=== PATIENT | female | born 1950 | race African-American/Black ===

== ENCOUNTER 2022-11-11 14:13 | Emergency (ER) | payer OTHER ==
--- OUTSIDE RECORDS SUMMARY | 2022-11-11 14:18 | XMS REPORT | Continuity of Care Document ---
:1950 Author Organization [facility] t Address [address] [place] [address] Care Team Providers Name Role Phone Anselmo ESTRADA, Dony Rankin Primary Care Physician [phone] Margarita Harvey LVN Attending Clinician Unavailable Anselmo ESTRADA, Dony Rankin Attending Clinician [phone] Casper Cash MD Attending Clinician [phone] Marline Andrade MD Attending Clinician Darinel ESTRADA, Tera Silverio Attending Clinician Carmine ESTRADA, Torin Alves Attending Clinician [phone] Yomaira Kilgore MD Attending Clinician KAMINI SAWANT Attending Clinician Unavailable YOMAIRA PEMBERTON Attending Clinician Unavailable ANDREW KEYES Attending Clinician Unavailable LILLIAN CASAS Attending Clinician Unavailable LILLIAN CASAS Admitting Clinician Unavailable Payers Payer Name Policy Type Policy Number Effective Date Expiration Date S ource Problems Condition Condition Condition Status Onset Resolution Last Treating Co mments Source Name Details Category Date Date Treatment Clinician Date Elevated Elevated Disease Active 2021-03 Metho di lipoprotei lipoprotei 2-15 st n(a) n(a) 00:00: Hospita 00 l Chest pain Chest pain Disease Active 2020-0 M ethodi with with 5-28 st moderate moderate 00:00: Hospit a risk for risk for 00 l cardiac cardiac etiology etiology Complicati Complicati Disease Active M ethodi on of on of 12 st internal internal 00:00: Hospit a right knee right knee 00 l prosthesis prosthesis Atopic Atopic Disease Active Methodi rhinitis rhinitis 06-09 st 00:00: Hospita 00 l Asthma Asthma Disease Active Methodi 06-09 st 00:00: Hospita 00 l Cervical Cervical Disease Active Metho di radiculiti radiculiti 410 st s s 00:00: Hospita 00 l Chronic Chronic Disease Active Methodi pain pain 06-09 st syndrome syndrome 00:00: Hospit a 00 l Depression Depression Disease Active M ethodi 06-09 st 00:00: Hospita 00 l Edema Edema Disease Active Methodi 06-09 st 00:00: Hospita 00 l Fibromyalg Fibromyalg Disease Active M ethodi ia ia 06-09 00:00: Hospita 00 l HLD HLD Disease Active Methodi (hyperlipi (hyperlipi 06-09 demia) demia) 00:00: Hospita 00 l Lumbar Lumbar Disease Active Methodi radiculopa radiculopa 06-09 thy thy 00:00: Hospita 00 l Sleep Sleep Disease Active Methodi apnea-CPAP apnea-CPAP 03-26 00:00: Hospita 00 l Essential Essential Disease Active Met hodi hypertensi hypertensi 3-14 st on on 00:00: Hospita 00 l Gastroesop Gastroesop Disease Active M ethodi hageal hageal 14 st reflux reflux 00:00: Hospita disease disease 00 l Allergies, Adverse Reactions, Alerts Allergy Allergy Status Severity Reaction(s) Onset Inactive Treating Comm ents Source Name Type Date Date Clinician Adhesive Propensi Active Rash Paper is Meth edd ty to 4-[address] adverse 00:00: Hospita reaction 00 l s to drug Codeine Propensi Active Hives Methodi ty to 4-10 st adverse 00:00: Hospita reaction 00 l s to drug Omeprazo Propensi Active Swelling Meth edd le ty to 4-10 st adverse 00:00: Hospita reaction 00 l s to drug Neuromus Propensi Active Method i cular ty to st Blockers adverse Hospita , reaction l Steroida s to l drug Family History Family Member Diagnosis Comments Start Date Stop Date Source Natural father [facility] Natural mother Stroke [facility] Social History Social Habit Start Date Stop Date Quantity Comments Source [facility] Alcohol intake 2022-08-06 2022-08-06 Current [facility] 00:00:00 00:00:00 non-drinker of Hospital alcohol (finding) History of Social 2022-08-06 2022-08-[address] function 00:00:00 00:00:00 Hospital Tobacco use and 2022-01-29 2022-01-29 Smokeless [facility] exposure 00:00:00 00:00:00 tobacco non-user Hospital Sex Ass[birth year] At [birth year] [facility] 00:00:00 00:00:00 Hospital Smoking Status Start Date Stop Date Source Never smoked tobacco [facility] ospital Medications Ordered Filled Start Stop Current Ordering Indication Dosage Frequency Signature Comments Components Source Medication Medication Date Date Medication? Clinician (SIG) Name Name traMADoL Yes TAKE 1 Methodi (ULTRAM) 50 8-[address] mg tablet 00:00: MOUTH Hospita 00 DAILY l NEEDED FOR MODERATE PAIN .CHRONIC PAIN. dulaglutide Yes 1.5mg Q7D Inject 0.5 Methodi (Trulicity) 8-01 mL (1.[address] 1.5 mg/0.5 00:00: total) Hospi ta mL 00 under the l subcutaneou skin once s pen a week. cholecalcif Yes 1000U QD Take 1 Met hodi nohelia, 6-[address] vitamin D3, 15:26: (1,000 Hosp michelle 25 mcg 08 Units l (1,000 total) by unit) mouth capsule daily. vitamin E 0 Yes 400U QD Take 1 Method i 400 UNIT 6-[address] capsule 15:26: (400 Units Hosp michelle 08 total) by l mouth daily. folic acid Yes 1{capsu QD Take 1 Me thodi 0.8 mg - le} capsule by st capsule 15:26: mouth Hospita 08 daily. l guaifen/phe 2022-0 Yes Take by Met hodi nyleph/acet 6-[address] aminophn 15:26: Hospita (MUCINEX 08 l COLD AND SINUS ORAL) ZINC ORAL 0 Yes Take by Metho di 6-[address] 15:26: Hospita 08 l cyanocobala 2022-0 Yes 1000ug QD Take 1 Me thodi min 6-[address] (VITAMIN 15:26: (1,000 mcg Hos radha B-12) 1000 08 total) by l MCG tablet mouth daily. pumpkin 0 Yes Take by Methodi seed 6-[address] extract/soy 15:26: Hospit a germ (AZO 08 l BLADDER CONTROL ORAL) dulaglutide 0 Yes .75mg Q7D Inject 0.5 Methodi (Trulicity) 3-01 mL (0.75 st 0.75 mg/0.5 00:00: mg total) H ospita mL 00 under the l subcutaneou skin once s pen a week. traMADoL 2022-0 2022- No TAKE 1 Method i (ULTRAM) 50 2-27 08-[address] mg tablet 00:00: 00:00 MOUTH Hospit a 00 :00 DAILY l NEEDED FOR MODERATE PAIN .CHRONIC PAIN. amlodipine- 0 Yes TAKE 1 Meth edd valsartan 2-[address] (EXFORGE) 00:00: MOUTH Hospita 10-160 mg 00 EVERY DAY l per tablet celecoxib 0 Yes TAKE 1 Method i (CeleBREX) 1-[address] 200 MG 00:00: MOUTH Hospita capsule 00 DAILY l NEEDED FOR MODERATE PAIN. DULoxetine 0 Yes TAKE 1 Metho di (CYMBALTA) 1-[address] 60 MG 00:00: MOUTH Hospita capsule 00 EVERY DAY l famotidine 2022-0 Yes 20mg QD Take 1 Metho di (PEPCID) 20 1-11 tablet (20 st MG tablet 00:00: mg total) Hos radha 00 by mouth l nightly. ferrous 3-0 Yes 325mg QD Take 1 Methodi sulfate 325 1-[address] (65 FE) MG 00:00: (325 mg Hosp michelle tablet 00 total) by l mouth daily. omeprazole Yes 40mg QD Take 1 Metho di (PriLOSEC) 03-[address] 40 MG 00:00: (40 mg Hospita capsule 00 total) by l mouth every morning. esomeprazol 2021-03 No TAKE ONE M ethodi e (NexIUM) 04-[address] 40 MG 17:05: 00:00 MOUTH Hospita capsule 46 :00 EVERY DAY l ondansetron 2021-03 Yes 4mg Q8H Take 1 Meth edd (ZOFRAN) 4 03-31 tablet (4 st MG tablet 00:00: mg total) Hos radha 00 by mouth l every 8 (eight) hours as needed for nausea or vomiting. ciprofloxac 2021-03 No 500mg Q.5D Take 1 Me thodi in (Cipro) 03-[address] 500 MG 00:00: 00:00 (500 mg Hospita tablet 00 :00 total) by l mouth 2 (two) times a day for 5 days. benzonatate 2021-03 No [id number] 100mg Q.[id number] Take 1 Methodi (Tessalon 03-[id number] [facility]) 100 00:00: 05:59 3D (100 mg Ho spita MG capsule 00 :00 total) by l mouth 3 (three) times a day as needed for cough for up to 10 days. bromphenira 2021-03 [id number] 5mL Q.25D Take 5 mL Methodi mine-pseudo 03-12 by mouth 4 s t eph-DM 00:00: 05:59 (four) Hospita -10 00 :00 times a l mg/5 mL day as syrup needed for cough for up to 10 days. amlodipine- 2021-03- No TAKE 1 Met hodi valsartan 03-[address] (EXFORGE) 00:00: 00:00 MOUTH Hospit a 10-160 mg 00 :00 EVERY DAY l per tablet albuterol 2021-03 No 2{puff} Q4H Inhale 2 Methodi (PROAIR 03-[address] HFA) 90 00:00: 05:59 every 4 Hospit a mcg/actuati 00 :00 (four) l on inhaler hours as needed for wheezing or shortness of breath for up to 30 days. traMADoL 2021-03- No TAKE 1 Method i (ULTRAM) 50 0-29 02-27 TABLET (50 s t mg tablet 00:00: 00:00 MG TOTAL) Ho spita 00 :00 BY MOUTH l DAILY NEEDED FOR MODERATE PAIN FOR UP TO 90 DAYS .CHRONIC PAIN. rosuvastati Yes TAKE 1 Meth edd n (CRESTOR) 8-[address] 10 mg 00:00: MOUTH Hospita tablet 00 EVERY DAY l traMADoL 2021- No [id number] 50mg Q24H Take 1 Metho di (ULTRAM) 50 7-22 10-21 tablet (50 s t mg tablet 00:00: 04:59 mg total) Ho spita 00 :00 by mouth l daily as needed for moderate pain for up to 90 days .chronic pain. traMADoL 2021- No [id number] 50mg Q24H Take 1 Metho di (ULTRAM) 50 7- 10-21 tablet (50 s t mg tablet 00:00: 04:59 mg total) Ho spita 00 :00 by mouth l daily as needed for moderate pain for up to 90 days .chronic pain. celecoxib 2022- No TAKE 1 Metho di (CeleBREX) 7 01-[address] 200 MG 00:00: 00:00 MOUTH Hospita capsule 00 :00 DAILY l NEEDED FOR MODERATE PAIN. DULoxetine 2021- No [id number] TAKE 1 Methodi (CYMBALTA) 4- 11-[address] 60 MG 00:00: 00:00 MOUTH Hospita capsule 00 :00 EVERY DAY l fluticasone Yes [id number] 1{puff} Q.5D Inhale 1 Methodi propion-selma 1-[address] meteroL 00:00: (two) Hospita (ADVAIR/ 00 times a l WIXELA day. INHUB) 250-50 mcg/dose DISKUS amlodipine- 2021- No TAKE 1 Met hodi valsartan 11-26 11-[address] (EXFORGE) 00:00: 00:00 MOUTH Hospit a 10-160 mg 00 :00 EVERY DAY l per tablet fluticasone 2019-0 Yes [id number] 100ug QD 2 sprays Methodi propionate 9-23 ([address] (FLONASE) 00:00: total) by Hos radha 50 00 Each Nare l mcg/actuati route on nasal daily. spray Immunizations Ordered Immunization Filled Immunization Date Status Commen ts Source Name Name [facility] >12 YR 2022-08-06 Completed [facility] COVID-19 MRNA 00:00:00 [facility] BIVALENT VACCINATION FLUZONE HIGH-DOSE PF 2022-02-05 Completed Meth odist 00:00:00 Hospital Pneumococcal 2022-02-05 Completed [facility] 20-valent Conjugate 00:00:00 Hospi ceasar Vaccine PFIZER READY TO USE 2021-06-06 Completed Metho dist COVID-19 MRNA 00:00:00 Hospital VACCINATION INFLUENZA QUAD PF 2020-12-[address] (0.5ML VIAL) 00:00:00 [facility] PFIZER COVID-19 MRNA 2020-11-24 Completed Meth odist VACCINATION 00:00:00 [facility] PFIZER COVID-19 MRNA 2020-04-30 Completed Meth odist VACCINATION 00:00:00 [facility] PFIZER COVID-19 MRNA 2020-04-09 Completed Meth odist VACCINATION 00:00:00 Hospital Influenza, 2019-11-08 Completed [facility] Unspecified 00:00:00 [facility] Pneumococcal 2018-05-27 Completed [facility] 2017-11-12 Completed Meth odist 00:00:00 Hospital FLUZONE QUAD PF 2017-01-01 Completed [facility] 00:00:00 [facility] Influenza (IM) 2015-11-14 Completed [facility] Preservative Free 00:00:00 Hospita l Zoster 2013-12-13 Completed [facility] 00:00:00 Hospital Vital Signs Vital Name Observation Time Observation Value Comments Source Systolic blood 2022-08-06 20:23:00 129 mm[Hg] [facility] pressure Diastolic blood 2022-08-06 20:23:00 90 mm[Hg] [facility] pressure Heart rate 2022-08-06 20:23:00 73 /min [facility] Body height 2022-08-06 20:23:00 160 cm [facility] Body weight 2022-08-06 20:23:00 86.183 kg [facility] BMI 2022-08-06 20:23:00 33.66 kg/m2 [facility] Body temperature 2022-01-29 20:32:00 37.33 Yohana [facility] Oxygen saturation in 2022-01-29 20:32:00 98 /min [facility] Arterial blood by Pulse oximetry Respiratory rate 2022-01-06 20:36:45 16 /min [facility] Procedures Procedure Date / Time Performing Clinician Source Performed COMPREHENSIVE METABOLIC PANEL 2022-08-06 Wilman Calderon 21:02:00 P. Hospital CBC WITH PLATELET AND 2022-08-06 Dony Calderon ist DIFFERENTIAL 21:02:00 P. Hospital LIPID PANEL 2022-08-06 Dony Calderon 21:02:00 P. Hospital AMYLASE LEVEL 2022-08-06 Dony Calderon 21:02:00 P. Hospital LIPASE LEVEL 2022-08-06 Dony Calderon 21:02:00 P. Hospital CORTISOL LEVEL, RANDOM 2022-08-06 Dony Calderono dist 21:02:00 P. Hospital ALDOSTERONE, SERUM 2022-08-06 Dony Calderon 21:02:00 P. Hospital METANEPHRINES, PLASMA 2022-08-06 Dony Calderon ist 21:02:00 P. Hospital DEHYDROEPIANDOSTERONE SULFATE 2022-08-06 Wilman Calderon 21:02:00 P. Hospital TESTOSTERONE, TOTAL, MASS 2022-08-06 Dony Calderon thodist SPECTROMETRY (FOR WOMEN, 21:02:00 P. Hospita l CHILDREN AND HYPOGONADAL MEN) MRI ABDOMEN W WO CONTRAST 2022-07-02 ShaileshCasper ist 19:24:26 [facility] US RENAL 2022-04-01 Dony Calderon 22:03:58 P. Hospital XR CHEST 2 VW 2022-02-28 Dony Calderon 22:05:[address] ANGIOGRAM PE CHEST 2022-02-28 Dony Calderon ist 21:59:40 P. Hospital POC CREATININE 2022-02-28 Dony Calderon 21:28:00 P. Hospital ESTIMATED GFR 2022-02-28 Dony Calderon 21:28:00 P. Hospital CBC WITH PLATELET AND 2022-02-05 Dony Calderon ist DIFFERENTIAL 22:29:00 P. Hospital HEMOGLOBIN A1C 2022-02-05 Dony Calderon 22:29:00 P. Hospital LIPID PANEL 2022-02-05 Dony Calderon 22:29:00 P. Hospital THYROID STIMULATING HORMONE 2022-02-05 Dony Calderon 22:29:00 P. Hospital VITAMIN B12 LEVEL 2022-02-05 Dony Calderon 22:29:00 P. Hospital VITAMIN D 25 HYDROXY LEVEL 2022-02-05 Dony Calderon ethodist 22:29:00 P. Hospital URINALYSIS SCREEN AND 2022-02-05 Dony Calderon MICROSCOPY, WITH REFLEX TO 22:29:00 P. Hospi ceasar CULTURE LIPOPROTEIN (A) 2022-02-05 Dony Calderon 22:29:00 P. Hospital SEDIMENTATION RATE 2022-02-05 Dony Calderon 22:29:00 P. Hospital C-REACTIVE PROTEIN 2022-02-05 Dony Calderon 22:29:00 P. Hospital B NATRIURETIC PEPTIDE 2022-02-05 Dony Calderon ist 22:29:00 P. Hospital D-DIMER 2022-02-05 Dony Calderon 22:29:00 P. Hospital ECG 12-LEAD 2022-02-05 Dony Calderon 22:07:50 P. Hospital URINE CULTURE 2022-01-29 Dony Calderon 22:45:00 P. Hospital LACTIC ACID LEVEL 2022-01-29 Dony Calderon 22:02:00 P. Hospital CBC WITH PLATELET AND 2022-01-29 Dony Calderon ist DIFFERENTIAL 22:02:00 P. Hospital COMPREHENSIVE METABOLIC PANEL 2022-01-29 Wilman Calderon 22:02:00 P. Hospital URINALYSIS SCREEN AND 2022-01-29 Dony Calderon ist MICROSCOPY, WITH REFLEX TO 22:02:00 P. Hospi ceasar CULTURE ESTIMATED GFR 2022-01-29 Dony Calderon 22:02:00 P. Hospital ESTIMATED GFR 2022-01-29 Dony Calderon 20:48:00 P. Hospital XR CHEST 2 VW 2022-01-06 Torin Lou 21:57:05 [facility] INFLUENZA ANTIGEN TEST, REFLEX 2022-01-06 Torin Lou ethodist NEGATIVE TO RPP 21:03:00 [facility] RESPIRATORY PATHOGEN PANEL 2022-01-06 Torin Lou dist WITH COVID-19 RT-PCR 21:03:00 [facility] XR KNEE 4+ VW BILATERAL 2022-01-01 Yomaira Kilgore 20:18:48 Hospital Plan of Care Planned Activity Planned Date Details Comments Source Future Scheduled 2022-11-10 Screening for [facility] Test 09:33:09 malignant neoplasm of colon (procedure) [code = 455315480] Future Scheduled 2022-11-10 Screening for [facility] Test 09:33:09 malignant neoplasm of colon (procedure) [code = 671722428] Future Scheduled 2022-11-10 Screening for [facility] Test 09:33:09 malignant neoplasm of colon (procedure) [code = 134598930] Future Scheduled 2022-11-10 SHINGLES VACCINES Method [facility] Hospital Test 09:33:09 (2 of 3) [code = SHINGLES VACCINES (2 of 3)] Future Scheduled 2022-11-10 INFLUENZA VACCINE [facility] Hospital Test 09:33:09 (#1) [code = INFLUENZA VACCINE (#1)] Future Scheduled 2022-11-10 COVID-19 VACCINE (6 Meth [facility] Test 09:33:09 - Pfizer series) [code = COVID-19 VACCINE (6 - Pfizer series)] Future Scheduled 2022-11-10 BREAST CANCER [facility] Test 09:33:09 SCREENING [code = BREAST CANCER SCREENING] Future Scheduled 2022-11-10 Screening for [facility] Test 09:33:09 malignant neoplasm of colon (procedure) [code = 321432048] Future Scheduled 2022-11-10 Screening for [facility] Test 09:33:09 malignant neoplasm of colon (procedure) [code = 370574040] Encounters Start End Encounter Admission Attending Care Care Encounter Source Date/Time Date/Time Type Type Clinicians Facility Department ID 2022-11-07 2022-11-07 Telephone Wes, 1.2.840.1 [id number] Methodi 00:00:00 00:00:[address] 3.430.2.7 Hospit a .3.911667 l .8 2022-10-27 2022-10-27 Refill Anselmo 1.2.840.1 [id number] Methodi 00:00:00 00:00:[address] P. 3.430.2.7 Hospit a .3.955042 l .8 2022-09-30 2022-09-30 Orders Anselmo, 1.2.840.1 [id number] Methodi 00:00:00 00:00:00 Only Christopher 28028.1.[address] P. 3.430.2.7 Hospit a .3.434815 l .8 2022-09-30 2022-09-30 Jeremiah Harvey 1.2.840.1 [id number] Methodi 00:00:00 00:00:[address] 3.430.2.7 Hospit a .3.392089 l .8 2022-08-13 2022-08-13 Orders Anselmo, 1.2.840.1 [id number] Methodi 00:00:00 00:00:00 Only Christopher 90926.1.[address] P. 3.430.2.7 Hospit a .3.589669 l .8 2022-08-06 2022-08-06 Office Anselmo 1.2.840.1 [id number] Methodi 15:00:00 15:59:25 Visit Dony 04386.1.[address] P. 3.430.2.7 Hospit a .3.573430 l .8 2022-08-06 2022-08-06 Outpatient NATEN, [facility] [id number] [place] 00:00:00 00:00:[address] 2022-07-02 2022-07-02 Hospital Shailesh, 1.2.840.1 [id number] Methodi 12:09:52 23:59:00 Encounter Casper 84140.1.[address] Flanagan 3.430.2.7 Hospit a .3.290116 l .8 2022-07-02 2022-07-02 Travel 1.2.840.1 1.2.407.842 [id number] Methodi 00:00:00 00:00:[address] 3.430.2.7 0.2.7.3.698 Ho spita .3.677717 084.8 l .8 2022-07-02 2022-07-02 Outpatient [facility], [facility] [id number] [place] 00:00:00 00:00:00 CASPER [address] [facility] 2022-07-01 2022-07-01 Transcribe Shailesh, 1.2.840.1 [id number] Methodi 00:00:00 00:00:00 Orders Casper 35806.1.[address] Flanagan 3.430.2.7 Hospit a .3.715984 l .8 2022-06-25 2022-06-25 Hospital Andrade, 1.2.840.1 [id number] Methodi 15:03:49 23:59:00 Encounter Marline Kemp 03697.1.[address] 3.430.2.7 Hospit a .3.066625 l .8 2022-06-25 2022-06-25 Orders Andrade, 1.2.840.1 [id number] Methodi 00:00:00 00:00:00 Only Marline Kemp 40300.1.[address] 3.430.2.7 Hospit a .3.481454 l .8 2022-06-25 2022-06-25 Outpatient MATILDE [facility] [id number] [place] 00:00:00 00:00:[address] MARLINE [address] 2022-06-23 2022-06-23 Transcribe Shailesh, 1.2.840.1 [id number] Methodi 00:00:00 00:00:00 Orders Casper 19375.1.[address] Flanagan 3.430.2.7 Hospit a .3.362540 l .8 2022-04-30 2022-04-30 Office Anselmo, 1.2.840.1 [id number] Methodi 13:20:00 14:23:20 Visit Dony 67798.1.[address] P. 3.430.2.7 Hospit a .3.382460 l .8 2022-04-30 2022-04-30 Outpatient ANSELMO [facility] [id number] [place] 00:00:00 00:00:[address] 2022-04-21 2022-04-21 Refill Anselmo, 1.2.840.1 [id number] Methodi 00:00:00 00:00:[address] P. 3.430.2.7 Hospit a .3.091273 l .8 2022-04-06 2022-04-06 Refill Anselmo, 1.2.840.1 [id number] Methodi 00:00:00 00:00:[address] P. 3.430.2.7 Hospit a .3.903642 l .8 2022-04-01 2022-04-01 [facility] Anselmo 1.2.840.1 [id number] Methodi 15:24:11 23:59:00 Encounter Dony 48557.1.[address] P. 3.430.2.7 Hospit a .3.822290 l .8 2022-04-01 2022-04-01 Travel 1.2.840.1 1.2.586.682 [id number] Methodi 00:00:00 00:00:[address] 3.430.2.7 0.2.7.3.698 Ho spita .3.140214 084.8 l .8 2022-04-01 2022-04-01 [facility] [id number] [place] 00:00:00 00:00:00 DONY [address] 2022-03-20 2022-03-20 Travel 1.2.840.1 1.2.805.084 [id number] Methodi 00:00:00 00:00:[address] 3.430.2.7 0.2.7.3.698 Ho spita .3.974245 084.8 l .8 2022-03-13 2022-03-13 [facility] Anselmo, 1.2.840.1 [id number] Methodi 00:00:00 00:00:00 Only Dony 04301.1.[address] P. 3.430.2.7 Hospit a .3.002630 l .8 2022-03-13 2022-03-13 Refill Anselmo, 1.2.840.1 [id number] Methodi 00:00:00 00:00:[address] P. 3.430.2.7 Hospit a .3.512452 l .8 2022-02-28 2022-02-28 [facility] Anselmo, 1.2.840.1 [id number] Methodi 15:30:00 23:59:00 Encounter Dony 30672.1.[address] P. 3.430.2.7 Hospit a .3.461537 l .8 2022-02-28 2022-02-28 [facility] Anselmo, 1.2.840.1 [id number] Methodi 14:30:00 15:29:00 Encounter Christopher 63859.1.[address] P. 3.430.2.7 Hospit a .3.955822 l .8 2022-02-28 2022-02-28 Hospital Naten, 1.2.840.1 [id number] Methodi 13:30:00 14:29:00 Encounter Christopher 94029.1.[address] P. 3.430.2.7 Hospit a .3.281548 l .8 2022-02-28 2022-02-28 Travel 1.2.840.1 1.2.554.656 [id number] Methodi 00:00:00 00:00:[address] 3.430.2.7 0.2.7.3.698 Ho spita .3.870223 084.8 l .8 2022-02-28 2022-02-28 Outpatient ROBBEN, [facility] [id number] 059 [place] 00:00:00 00:00:00 [facility]RISTOPHER 653 [facility] 2022-02-28 2022-02-28 Outpatient ROBBEN, [facility] [id number] 059 [place] 00:00:00 00:00:00 CHRISTOPHER 650 [facility] 2022-02-28 2022-02-28 Outpatient ROBBEN, [facility] [id number] [place] 00:00:00 00:00:00 CHRISTOPHER [facility] 2022-02-10 2022-02-10 Travel 1.2.840.1 1.2.927.838 [id number] Methodi 00:00:00 00:00:[address] 3.430.2.7 0.2.7.3.698 Ho spita .3.421026 084.8 l .8 2022-02-08 2022-02-08 Orders Robben, 1.2.840.1 [id number] Methodi 00:00:00 00:00:00 Only Christopher 78818.1.[address] P. 3.430.2.7 Hospit a .3.534434 l .8 2022-02-05 2022-02-05 Office Robben, 1.2.840.1 [id number] Methodi 15:00:00 16:17:19 Visit [place]fra[place]allas 02202.1.[address] P. 3.430.2.7 Hospit a .3.092513 l .8 2022-02-05 2022-02-05 Outpatient ROBBEN, [facility] [id number] 761 [place] 00:00:00 00:00:00 [address]RI[address]HER [address] 2022-01-30 2022-01-30 Telephone Harvey, 1.2.840.1 [id number] Methodi 00:00:00 00:00:[address] 3.430.2.7 Hospit a .3.496381 l .8 2022-01-29 2022-01-29 Lab Robben, 1.2.840.1 [id number] 3369 Methodi 15:40:00 15:45:[address] P. 3.430.2.7 Hospit a .3.817107 l .8 2022-01-29 2022-01-29 Office Naten, 1.2.840.1 [id number] [id number] 2943 Methodi 14:20:00 14:58:02 Visit Dony 61372.1.[address] P. 3.430.2.7 Hospit a .3.817799 l .8 2022-01-29 2022-01-29 Outpatient ROBBEN, [facility] [id number] 6[address] [place] 00:00:00 00:00:00 CHRISTOPHER [address] 2022-01-29 2022-01-29 Outpatient ROBBEN, [facility] [id number] 766 [place] 00:00:00 00:00:[address]HER [address] 2022-01-29 2022-01-29 Travel 1.2.840.1 1.2.861.217 7562 021122 Methodi 00:00:00 00:00:[address] 3.430.2.7 0.2.7.3.698 Ho spita .3.560737 084.8 l .8 2022-01-10 2022-01-10 Orders Tena, 1.2.840.1 [id number] 2099 [id number] Methodi 00:00:00 00:00:00 Only Tera Silverio 53524.1.[address] 3.430.2.7 Hospit a .3.748634 l .8 2022-01-10 2022-01-10 Telephone Harvey, 1.2.840.1 [id number] 2099 [id number] Methodi 00:00:00 00:00:[address] 3.430.2.7 Hospit a .3.832300 l .8 2022-01-06 2022-01-06 Emergency Carmine, 1.2.840.1 [id number] Methodi 14:27:00 16:36:[address] [place] 3.430.2.7 Hospi Joselyn .3.633410 l .8 2022-01-06 2022-01-06 Emergency [facility] 064 [id number] 9528 [place] 00:00:00 00:00:00 TORIN [address] 2022-01-06 2022-01-06 Joni Calderon, 1.2.840.1 [id number] 4432 Methodi 00:00:00 00:00:[address] P. 3.430.2.7 Hospit a .3.103572 l .8 2022-01-06 2022-01-06 Travel 1.2.840.1 1.2.033.903 0665 915213 Methodi 00:00:00 00:00:[address] 3.430.2.7 0.2.7.3.698 Ho spita .3.025957 084.8 l .8 2022-01-01 2022-01-01 Office Jame, 1.2.840.1 [id number] Methodi 15:15:00 15:56:39 Visit Yomaira Ramsey [address]75.1.[address] 3.430.2.7 Hospit a .3.455629 l .8 2022-01-01 2022-01-01 Outpatient JAME [facility] [id number] [place] 00:00:00 00:00:00 YOMAIRA [address] 2022-01-01 2022-01-01 Outpatient JAME [facility] [id number] [place] 00:00:00 00:00:00 YOMAIRA [address] 2021-12-31 2021-12-31 Travel 1.2.840.1 1.2.451.812 [id number] [facility]i 00:00:00 00:00:[address] 3.430.2.7 0.2.7.3.698 spita .3.114578 084.8 l .8 2021-12-19 2021-12-19 Refill Anselmo, 1.2.840.1 [id number] Methodi 00:00:00 00:00:[address] P. 3.430.2.7 Hospit a .3.021764 l .8 2021-09-24 2021-09-24 Outpatient ANSELMO [facility] [id number] [place] 00:00:00 00:00:00 DONY [address] 2021-08-20 2021-08-20 Outpatient KAMINI SAWANT [facility] [id number] [place] 00:00:00 00:00:[address] 2021-07-09 2021-07-09 Outpatient ANSELMO [facility] [id number] [place] 00:00:00 00:00:00 DONY [address] 2021-05-27 2021-05-27 Outpatient KAMINI SAWANT [facility] [id number] [place] 00:00:00 00:00:[address] 2021-05-27 2021-05-27 Outpatient SAVANA, KAMINI [facility] [id number] [place] 00:00:00 00:00:[address] 2021-05-27 2021-05-27 Outpatient SAVANA, KAMINI [facility] [id number] [place] 00:00:00 00:00:[address] 2021-05-27 2021-05-27 Outpatient SAVANA, KAMINI [facility] [id number] [place] 00:00:00 00:00:[address] 2021-05-02 2021-05-02 Outpatient ROBBEN, [facility] [id number] [place] 00:00:00 00:00:00 CHRISTOPHER [address] 2021-04-16 2021-04-16 Outpatient SAVANA, KAMINI [facility] [id number] [place] 00:00:00 00:00:[address] 2021-03-19 2021-03-19 Outpatient NILAY, [facility] [id number] [place] 00:00:00 00:00:00 YOMAIRA [address] 2021-03-14 2021-03-14 Outpatient ROBBEN, [facility] [id number] [place] 00:00:00 00:00:00 CHRISTOPHER [address] 2021-03-14 2021-03-14 Outpatient ROBBEN, [facility] [id number] [place] 00:00:00 00:00:00 CHRISTOPHER [address] 2021-03-14 2021-03-14 Outpatient ROBBEN, [facility] [id number] [place] 00:00:00 00:00:00 CHRISTOPHER [address] 2021-02-11 2021-02-11 Outpatient ROBBEN, [facility] [id number] [place] 00:00:00 00:00:00 CHRISTOPHER [address] 2020-12-12 2020-12-12 Outpatient LIONBERGER, [facility] [id number] [place] 00:00:00 00:00:00 YOMAIRA [address] 2020-12-12 2020-12-12 Outpatient LIONBERGER, [facility] [id number] [place] 00:00:00 00:00:00 YOMAIRA [address] 2020-12-12 2020-12-12 Outpatient LIONBERGER, [facility] [id number] [place] 00:00:00 00:00:00 YOMAIRA [address] 2020-12-04 2020-12-04 Outpatient WALI, [facility] [id number] [place] 00:00:00 00:00:00 ANDREW [address] 2020-11-21 2020-11-21 Outpatient WALI, [facility] [id number] [place] 00:00:00 00:00:00 ANDREW [address] 2020-11-12 2020-11-12 Outpatient ROBBEN, [facility] [id number] [place] 00:00:00 00:00:00 CHRISTOPHER 413 Me odi 2020-10-11 2020-10-11 Outpatient ROBBEN, [facility] [id number] [place] 00:00:00 00:00:00 CHRISTOPHER 304 Me odi 2020-10-08 2020-10-08 Outpatient ROBBEN, [facility] [id number] [place] 00:00:00 00:00:00 CHRISTOPHER 795 Me odi 2020-10-04 2020-10-04 Outpatient ROBBEN, [facility] [id number] [place] 00:00:00 00:00:00 CHRISTOPHER 305 Me odi 2020-07-04 2020-07-04 Outpatient ROBBEN, [facility] [id number] [place] 00:00:00 00:00:00 CHRISTOPHER 426 Me odi 2020-04-30 2020-04-30 Outpatient ROBBEN, [facility] [id number] [place] 00:00:00 00:00:00 CHRISTOPHER 933 Me odi 2020-04-09 2020-04-09 Outpatient [facility] [id number] [place] 00:00:00 00:00:[address] 2019-12-20 2019-12-20 Outpatient ROBBEN, [facility] [id number] [place] 00:00:00 00:00:00 CHRISTOPHER [address] 2019-12-20 2019-12-20 Outpatient ROBBEN, [facility] [id number] [place] 00:00:00 00:00:00 CHRISTOPHER 617 [facility] 2019-07-28 2019-07-28 Outpatient YESSENIA, [facility] [id number] [place] 00:00:00 00:00:00 LILLIAN [address] 2019-07-27 2019-07-27 Outpatient NATEN, [facility] [id number] [place] 00:00:00 00:00:00 CHRISTOPHER 022 [facility] 2019-02-18 2019-02-18 Outpatient ROBBEN, [facility] [id number] [place] 00:00:00 00:00:00 CHRISTOPHER 662 [facility] 2019-02-18 2019-02-18 Outpatient ROBBEN, [facility] [id number] [place] 00:00:00 00:00:00 CHRISTOPHER 661 [facility] 2019-02-02 2019-02-02 Outpatient ROBBEN, [facility] [id number] [place] 00:00:00 00:00:00 CHRISTOPHER 380 [facility] 2019-01-11 2019-01-11 Outpatient ROBBEN, [facility] [id number] [place] 00:00:00 00:00:00 CHRISTOPHER 271 [facility] Results Test Description Test Time Test Comments Results Result Comments Source Comprehensive metabolic panel 2022-08-13 04:03:00 Test Item Value Reference Range Interpretation Comme nts Glucose (test code = 86 mg/dL 65-139 Non-fa sting reference 2345-7) interval BUN (test code = 3094-0) 12 mg/dL 7-25 Creatinine (test code = 0.80 mg/dL 0.60-1.00 2160-0) eGFR (test code = 79 See_Comment [place] [address]-3) the CKD-EPI 202 1 equation. To ca lculate the new eGFR fr om a previous Creati nine or Mat [place] t, go to https://www.kid ramez.org/ professionals/k doqi/gfr %5Fcalculator [Automated mess age] The system which ge nerated this result tra nsmitted reference range : > OR = 60 mL/min/1.73m 2. The reference range was not used to interpr et this result as normal/abnormal . BUN/creatinine ratio NOT APPLICABLE See_Comment [Aut omated message] (test code = 3097-3) The i-nexuss tem which generated this result transmitted ref erence range: 6 - 22 ( calc). The reference r juany was not used to int erpret this result as normal/abnormal . Sodium (test code = 139 mmol/L 210-038 9486-2) Potassium (test code = 4.5 mmol/L 3.5-5.3 2823-3) Chloride (test code = 103 mmol/L 98-110 2075-0) CO2 (test code = 2027-9) 31 mmol/L 20-32 Calcium (test code = 9.5 mg/dL 8.6-10.4 66421-5) Protein (test code = 7.2 g/dL 6.1-8.1 2885-2) Albumin (test code = 4.3 g/dL 3.6-5.1 1751-7) Globulin, total (test 2.9 See_Comment [Auto mated message] code = 19526-9) The system w [employer] generated this result transmitted ref erence range: 1.9 - 3. 7 g/dL (calc). The ref erence range was not u sed to interpret this result as normal/abnor mal. Albumin/globulin ratio 1.5 See_Comment [Aut omated message] (test code = 1759-0) The i-nexuss tem which generated this result transmitted ref erence range: 1.0 - 2. 5 (calc). The ref erence range was not u sed to interpret this result as normal/abnor mal. Total bilirubin (test 0.6 mg/dL 0.2-1.2 code = 1974-) Alkaline phosphatase 83 U/L 37-153 (test code = 6768-6) AST (test code = 1920-8) 14 U/L 10-35 ALT (test code = 1742-6) 14 U/L 6-29 GLENN (test code = GLENN) FASTING:NOMULTIPLE COLLECTION TIMES FOR SAME TEST TYPE. FASTING: NO RAC (test code = RAC) Performing Organization Information: Site ID: RGA Name: [facility] Address: [address] [place] [phone] Director: Ruy [facility] [id number] 04:03:00 Test Item Value Reference Range Interpretation Comments Cholesterol, total 151 mg/dL See_Comment [Automat ed (test code = 3-3) message ] The system which generated this result transmitted reference range : <=200. The reference range was not used to interpret this result as normal/abnormal . HDL cholesterol 62 mg/dL See_Comment [Automated (test code = 2085-9) message ] The system which generated this result transmitted reference range : > OR = 50. The reference range was not used to interpret this result as normal/abnormal . Triglycerides (test 71 mg/dL See_Comment [Automa tadeo code = 2571-8) message] The system which generated this result transmitted reference range : <=150. The reference range was not used to interpret this result as normal/abnormal . LDL cholesterol 74 mg/dL (calc) Reference ra nge: calculated (test <100 Desira ble code = 67236-6) range <100 m g/dL for primary prevention; <70 mg/dL for patients with C HD or diabetic patients with > or = 2 CHD risk factors. LDL-C is now calculated using the Foster-Lexis calculation, which is a validated novel method providin g better accuracy than the Friedewald equation in the estimation of LDL-C. Foster S S et al. RAMON. 2013;310(19): 5270-0911 (http://educati on .[employer] FundDiagnostNetotiate .com/faq/RFI633 ) Cholesterol/HDL 2.4 See_Comment [Automated ratio (test code = message] The 9830-1) system which generated this result transmitted reference range : <5.0 (calc). Th e reference range was not used to interpret this result as normal/abnormal . Non-HDL cholesterol 89 See_Comment For rey ents with (test code = diabetes plus 1 53796-7) major ASCVD ris k factor, treatin g to a non-HDL-C goal of <100 mg/dL (LDL-C of <70 mg/dL) is considered a therapeutic option. [Automated message] The system which generated this result transmitted reference range : <130 mg/dL (calc). The reference range was not used to interpret this result as normal/abnormal . GLENN (test code = FASTING:NOMULTIPLE GLENN) COLLECTION TIMES FOR SAME TEST TYPE. FASTING: NO RAC (test code = Performing RAC) Organization Information: Site ID: [facility] Name: [facility] Address: [address] [place] [address] Director: uRy HeathMidland Memorial HospitalAmylase [id number] 04:03:00 Test Item Value Reference Range Interpretation Comments Amylase (test code = 150 U/L 21-101 H 1798-8) GLENN (test code = GLENN) FASTING:NOMULTIPLE COLLECTION TIMES FOR SAME TEST TYPE. FASTING: NO RAC (test code = RAC) Performing Organization Information: Site ID: A Name: [facility] Address: [address] [place] [address] Director: Ruy Gupta Lab Interpretation (test Abnormal code = 27960-0) [facility] HospitalCortisol level, [id number] 04:03:00 Test Item Value Reference Range Interpretation Comments Cortisol, 5.9 mcg/dL Reference Range : random (test For 8 a.m.(7-9 code = 2143-6) a.m.) Specime n: 4.0-22.0Referen ce Range: For 4 p.m.(3-5 p.m.) Specimen: 3.0-1 7.0 * Please interp ret above results accordingly * GLENN (test code FASTING:NOMULTIPLE = GLENN) COLLECTION TIMES FOR SAME TEST TYPE. FASTING: NO RAC (test code Performing = RAC) Organization Information: Site ID: A Name: [facility] Address: [address] [place] [address] Director: Ruy CorreiaGuernsey Memorial HospitalLipase [id number] 04:03:00 Test Item Value Reference Range Interpretation Comments Lipase (test code = 27 U/L 7-60 3040-3) GLENN (test code = FASTING:NOMULTIPLE GLENN) COLLECTION TIMES FOR SAME TEST TYPE. FASTING: NO RAC (test code = Performing Organization RAC) Information: Site ID: [facility] Name: [facility] Address: [address] [place] [phone] Director: Ruy Gupta [facility] HospitalCB with platelet and [id number] 04:03:00 Test Item Value Reference Range Interpretation Comments WBC (test code = 5.6 See_Comment [Automated 6690-2) message] The system which generated this result transmitted reference range : 3.8 - 10.8 Thousand/uL. Th e reference range was not used to interpret this result as normal/abnormal . RBC (test code = 4.99 See_Comment [Automated 789-8) message] The system which generated this result transmitted reference range : 3.80 - 5.10 Million/uL. The reference range was not used to interpret this result as normal/abnormal . HGB (test code = 13.0 g/dL 11.7-15.5 718-7) HCT (test code = 41.7 % 35.0-45.0 4544-3) MCV (test code = 83.6 fL 80.0-100.0 787-2) MCH (test code = 26.1 pg 27.0-33.0 L 785-6) MCHC (test code = 31.2 g/dL 32.0-36.0 L 786-4) RDW (test code = 14.5 % 11.0-15.0 788-0) Platelet count (test 308 See_Comment [Autom ated code = 777-3) message] The system which generated this result transmitted reference range : 140 - 400 Thousand/uL. Th e reference range was not used to interpret this result as normal/abnormal . MPV (test code = 9.5 fL 7.5-12.5 776-5) Neutrophils, 2486 See_Comment [Automated absolute (test code message] The = 751-8) system which generated this result transmitted reference range : 1,500 - 7,800 cells/uL. The reference range was not used to interpret this result as normal/abnormal . Lymphocytes, 2565 See_Comment [Automated absolute (test code message] The = 731-0) system which generated this result transmitted reference range : 850 - 3,900 cells/uL. The reference range was not used to interpret this result as normal/abnormal . Monocytes, absolute 448 See_Comment [Automa tadeo (test code = 742-7) message] The system which generated this result transmitted reference range : 200 - 950 cells/uL. The reference range was not used to interpret this result as normal/abnormal . Eosinophils, 78 See_Comment [Automated absolute (test code message] The = 711-2) system which generated this result transmitted reference range : 15 - 500 cells/uL. The reference range was not used to interpret this result as normal/abnormal . Basophils, absolute 22 See_Comment [Automa tadeo (test code = 704-7) message] The system which generated this result transmitted reference range : 0 - 200 cells/u L. The reference range was not used to interpr et this result as normal/abnormal . Neutrophils (test 44.4 % code = 770-8) Lymphocytes (test 45.8 % code = 736-9) Monocytes (test code 8.0 % = 5905-5) Eosinophils (test 1.4 % code = 713-8) Basophils + RC (test 0.4 % code = 706-2) GLENN (test code = FASTING:NOMULTIPLE GLENN) COLLECTION TIMES FOR SAME TEST TYPE. FASTING: NO RAC (test code = Performing RAC) Organization Information: Site ID: [facility] Name: [facility] Address: [address] [place] [address] Director: Ruy Gupta Lab Interpretation Abnormal (test code = 19103-3) [facility] HospitalDehydroepiandosterone [id number] 04:03:00 Test Item Value Reference Range Interpretation Comments DHEA sulfate 16 See_Comment DHEA-S values fall (test code = with advancing 2191-5) age.For referen ce, the reference intervals for 3 1-40 yearold patient s are: Male: 93-4 15 mcg/dLFemale: 19-237 mcg/dL [Automated mess age] The system whic h generated this result transmit tadeo reference range : 9 - 118 mcg/dL. T he reference range was not used to interpret this result as normal/abnormal . GLENN (test code FASTING:NOMULTIPLE = GLENN) COLLECTION TIMES FOR SAME TEST TYPE. FASTING: NO RAC (test code Performing = RAC) Organization Information: Site ID: [facility] Name: [facility] Address: [address] [place] [phone] Director: Ruy Gupta [facility] HospitalAldosterone, [id number] 04:03:00 Test Item Value Reference Interpretation Comments Range Aldosterone 8 ng/dL Adult Referenc e Ranges (test code = for Aldosterone : Upright 1763-2) 8:00-10:00 am < or = 28 ng/dL Upright 4 :00-6:00 pm < or = 21 ng /dL Supine 8:00-10:00 am 3 -16 ng/dL This test was d jose alfredooped and its analyti ed performancechar acteristic s have been det ermined [place] [facility] It has not beencleared or approved by FDA. This as say has been validatedp ursuant to the CLIA regula tions and is used for clinicalpurpose s. GLENN (test code = FASTING:NOMULTIP GLENN) LE COLLECTION TIMES FOR SAME TEST TYPE. FASTING: NO RAC (test code = Performing RAC) Organization Information: Site ID: EZ Name: [facility], Address: [address] [place] [phone] Director: Jacqueline La MD,PhD,GARETH [facility] HospitalMetanephrines, [id number] 04:03:00 Test Item Value Reference Interpretation Comments Range Metanephrine, 44 pg/mL See_Comment This test was developed and free (test code = its analyt ical 85340-8) performancechar acteristics have been deter mined [place] [facility]. It has not beencleared or approved by FDA. This assay has been validatedpursua nt to the CLIA regulation s and is used for clinicalpur poses. [Automated mess age] The system which ge nerated this result transmit tadeo reference range: < OR = 5 7. The reference range was not used to interpret th is result as normal/abnormal . Normetanephrine, 168 pg/mL See_Comment H This test was developed and free (test code = its analyt ical 47900-3) performancechar acteristics have been deter mined [place] [facility]. It has not beencleared or approved by FDA. This assay has been validatedpursua nt to the CLIA regulation s and is used for clinicalpur poses. [Automated mess age] The system which ge nerated this result transmit tadeo reference range: < OR = 1 48. The reference range was not used to interpret th is result as normal/abnormal . Metanephrine+nor, 212 pg/mL See_Comment H Elevation s > 4-fold upper total free (test reference r juany: code = 59975-1) stronglysugg estive of a pheochromocytom a(1). Elevations >1 - 4-foldupper reference range : significant but not diagnos tic, maybe due to medicati ons or stress. Suggest running 24 hr urinefractio nated metanephrines a nd serum Chromogranin A forconfirmation . Reference: (1) Sol-S rosangela Lloyd et al, Plasma Securities Underwriter mogranin A orUrine Fractio nated Metanephrines F ollow-Up Testing Improve sthe Diagnostic Accu racy of Plasma Fraction ated Metanephrinesfo r Pheochromocytom a. The Journal of Clin ical Endocrinologyan d Metabolism 93 (1),91-95, 2 008. For additional info rmation, please refer tohttp://educat ion.[employer]Springest/faq /MetFractFree (This link is b eing provided for informational/e ducationalpur poses only.) Th is test was developed and i ts analytical performancechar acteristics have been deter mined by [employer] [facility]. It has not beencleared or approved by FDA. This assay has been validatedpursua nt to the CLIA regulation s and is used for clinicalpur poses. [Automated mess age] The system which ge nerated this result transmit tadeo reference range: < OR = 2 05. The reference range was not used to interpret th is result as normal/abnormal . GLENN (test code = FASTING:NOMULT GLENN) IPLE COLLECTION TIMES FOR SAME TEST TYPE. FASTING: NO RAC (test code = Performing RAC) Organization Information: Site ID: EZ Name: [facility]i [facility], Address: [address] [place] [phone] Director: Jacqueline La MD,PhD,GARETH Lab Abnormal Interpretation (test code = 78254-4) [facility] HospitalTestosterone, total, mass spectrometry (for women, children and hypogonadal men)2022-08-13 04:03:00 Test Item Value Reference Interpretation Comments Range Testoster 6 ng/dL 2-45 For additional information, one, please refer total, tohttps://angel wade.[employer] lc/ms/ms ExceleraRx/faq/ TotalTestostero (test neLCMSMS (This link is being code = provided for 2985-09) informational/e ducational purposes only.) (Note) This test was develo ped and its analytical performancechar acteristics have been deter mined by [employer]. It h as notbeen cleared or appr kobe by the FDA. This assay has been validatedpursua nt to the CLIA regulations and is used for clinical purpos es. [facility] [id number] [address],[address] [id number] 00Micfranny Stern MD GLENN (test FASTING:NOMULTIPL code = E COLLECTION GLENN) TIMES FOR SAME TEST TYPE. FASTING: NO RAC (test Performing code = Organization RAC) Information: Site ID: [id number] Name: [employer] on Address: [address] [place] [address], [address] [place] [phone] Director: Efrain Stern MD [facility] [id number] 21:31:00 Test Item Value Reference Range Interpretation Comments POC creatinine (test 0.8 mg/dl 0.5-0.9 Operato r Name: [facility] code = 17287-8) MarleneDevic e ID: [id number] [facility] HospitalEstimated [id number] 21:31:00 Test Item Value Reference Range Interpretation Comments Estimated GFR (test 87 mL/min/1.73 m2 Caterg ory Units code = 21946-9) Interpretati onG1 >=90 Normal or highG 2 60-89 Mildly decrease dG3a 45-59 Mildly to moder ately xutatpgeaN7k 30 -44 Moderately to s everely decreasedG4 15- 29 Severely decreasedG5 <1 5 Kidney failureThe eGFR was calculated jennie alexander the Chronic Kidney Disease Epidemiology Co llaboration (CKD-EPI) equat ion. Interpretation is based on recommendations of the National Kidney Foundation-Kidn ey Disease Outcomes Qualit y Initiative (NKF-KDOQI) pub lished in 2014. [facility] HospitalECG 12 [id number] 04:23:50 Test Item Value Reference Range Interpretation Comments Ventricular rate (test 62 code = 253) Atrial rate (test code 62 = 255) WI interval (test code 184 = 266) QRSD interval (test 82 code = 260) QT interval (test code 408 = 264) QTC interval (test code 414 = 265) P axis 1 (test code = 33 267) QRS axis 1 (test code = 46 268) T wave axis (test code 42 = 270) EKG impression (test Normal sinus code = 273) rhythm-Normal ECG-In automated comparison with ECG of 11-FEB-2021 15:47,-No significant change was found- [facility] HospitalVitamin B12 [id number] 22:26:00 Test Item Value Reference Range Interpretation Comments Vitamin B12 (test 839 pg/mL 200-1100 code = 2132-9) GLENN (test code = FASTING:NO FASTING: NO GLENN) RAC (test code = Performing Organization RAC) Information: Site ID: RGA [facility]: [facility] Address: [address] [place] [phone] Director: Ruy Gupta [facility] HospitalHemoglobin [id number] 22:26:00 Test Item Value Reference Interpretation Comments Range Hemoglobin A1C 6.0 See_Comment H For someone w ithout (test code = known diabetes, a 4548-4) hemoglobin A1c value between 5.7% an d 6.4% is consist ent withprediabetes and should be confi rmed with a follow-u p test. For someo ne with known diab etes, a value <7%indicates that their diabetes is well controlled . O9bhlflxhe shou ld be individualized based on duration ofdiabetes, age , comorbid condit ions, and otherconsiderat ions. This assay resu lt is consistent with an increased risko f diabetes. Curre ntly, no consensus ex ists regarding use ofhemoglobin A1 c for diagnosis of diabetes for children. [Auto mated message] The sy stem which generated this result transmit tadeo reference range : <5.7 % of total Hgb. The reference r juany was not used to interpret this result as normal/abnormal . GLENN (test code = FASTING:NO GLENN) FASTING: NO RAC (test code = Performing RAC) Organization Information: Site ID: ESTER Name: [facility] Address: [address] [place] [phone] Director: Ruy Gupta Lab Interpretation Abnormal (test code = 42458-9) [facility] natriuretic [id number] 22:26:00 Test Item Value Reference Range Interpretation Comments BNP (test 32 pg/mL See_Comment BNP levels inc rease code = with age in the 08598-3) generalpopulati on with the highest janessa ues seen inindividuals g reater than 75 years o f age.Reference: J. Am. Carmencita. Cardiol. 2002; 40:976-982. [Au tomated message] The sy stem which generated this result transmit tadeo reference range : <=100. The reference r juany was not used to int erpret this result as normal/abnormal . GLENN (test FASTING:NO FASTING: code = GLENN) NO RAC (test Performing code = RAC) Organization Information: Site ID: [facility] Name: [facility] Address: [address] [place] [address] Director: Ruy CorreiaGuernsey Memorial HospitalThyroid stimulating [id number] 22:26:00 Test Item Value Reference Range Interpretation Comments TSH (test 1.68 See_Comment [Automated mes dipika] code = The system [facility] h 3016-3) generated this result transmit tadeo reference range : 0.40 - 4.50 mIU /L. The reference r juany was not used to interpret this result as normal/abnormal . GLENN (test FASTING:NO FASTING: code = GLENN) NO RAC (test Performing code = RAC) Organization Information: Site ID: [facility] Name: [facility] Address: [address] [place] [phone] Director: Ruy Gupta [facility] HospitalC-reactive [id number] 22:26:00 Test Item Value Reference Range Interpretation Comments CRP (test code = 20.7 mg/L See_Comment H [Automated 1987-07) message] The system which generated this result transmitted reference range : <=8.0. The reference range was not used to interpret this result as normal/abnormal . GLENN (test code = FASTING:NO GLENN) FASTING: NO RAC (test code = Performing RAC) Organization Information: Site ID: A Name: [facility] Address: [address] [place] [address] Director: Ruy Gupta Lab Interpretation Abnormal (test code = 01780-6) [facility] HospitalVppvhxrhN-[id number] 22:26:00 Test Item Value Reference Interpretation Comments Range D-dimer (test code 1.36 See_Comment H The D-Di wily test is = 28308-5) used frequently to excludean acute PE or DVT. In patient s with a low tomoderate clinical risk assessment and a D-Dimerresult < 0.50 mcg/mL FEU, the likelihood of a PEor DVT is very low . However, a thromboembolice vent should not be e xcluded solely on the b asisof the D-Dimer lev el. Increased level s of D-Dimerare asso ciated with a PE, DVT, DIC, malignancies,in flammati on, sepsis, delfino maggie, trauma, pregnan cy,and advancing patie nt age.[Ramon 2006 11:295(2):199-2 07] For additional info rmation, please refer to:http://educa tion.que stdiagnostics.c om/faq/F AQ149(This link is being provided for informational/e ducation al purposes onl y) [Automated mess age] The system which ge nerated this result tra nsmitted reference range : <0.50 mcg/mL FEU. The reference range was not used to interpr et this result as normal/abnormal . GLENN (test code = FASTING:NO GLENN) FASTING: NO RAC (test code = Performing RAC) Organization Information: Site ID: [facility] Name: [facility] Lab Address: [address] [place] [phone] Director: Ruy Gupta Lab Interpretation Abnormal (test code = 64782-3) [facility] Hospitaledimentation [id number] 22:26:00 Test Item Value Reference Range Interpretation Comments Sedimentation rate 50 mm/h See_Comment H [Automat ed (test code = 4537-7) message ] The system which generated this result transmitted reference range : < OR = 30. The reference range was not used to interpret this result as normal/abnormal . GLENN (test code = FASTING:NO GLENN) FASTING: NO RAC (test code = Performing RAC) Organization Information: Site ID: [facility] Name: [facility] Address: [address] [place] [phone] Director: Ruy Gupta Lab Interpretation Abnormal (test code = 51751-7) [facility] HospitalVitamin D 25 hydroxy [id number] 22:26:00 Test Item Value Reference Range Interpretation Comments Vitamin D, 25-hydroxy 22 ng/mL 30-100 L Vitami n D Status (test code = 1988-04) 25-OH V itamin D: Deficiency: <20 ng/mLInsufficie n cy: 20 - 29 ng/mLOptimal: > or = 30 ng/mL For 25-OH Vitamin D testing on patients on D2-supplementat i on and patients for whom quantitation of D2 and D3 fractions is required, the QuestAssureD(TM ) 25-OH VIT D, (D2,D3), LC/MS/MS is recommended: order code 9288 8 (patients >2yrs).See Note 1 Note 1 For additional information, please refer to http://educatio n .[employer]/faq/FAQ19 9 (This link is being provided for informational/e d ucational purposes only.) GLENN (test code = GLENN) FASTING:NO FASTING: NO RAC (test code = RAC) Performing Organization Information: Site ID: [facility] Name: [facility] Address: [address] [place] [phone] Director: Ruy Gupta Lab Interpretation Abnormal (test code = 84299-6) [facility] HospitalLipoprotein (a)2022-02-13 22:26:00 Test Item Value Reference Interpretation Comments Range Lipoprotein (a) 113 nmol/L See_Comment H Risk: Optim al < 75 (test code = nmol/L; Moderat e 74325-1) 75-125 nmol/L; High >125 nmol/L Cardiovascular event risk maddy lopes cut points (optimal,modera te, high) are based on Holli LYC2017;69:6 92-7 11. [Automated message] The sy stem which generated this result transmitted reference range : <=75. The refer ence range was not u sed to interpret th is result as normal/abnormal . GLENN (test code = FASTING:NO GLENN) FASTING: NO RAC (test code = Performing RAC) Organization Information: Site ID: [facility] Name: [facility], Address: [address] [place] [phone] Director: Jacqueline La MD,PhD,GARETH Lab Interpretation Abnormal (test code = 52576-3) [facility], with reflex to culture 2022-02-13 22:26:00 Test Item Value Reference Range Interpretation Comments Color, UA (test code YELLOW YELLOW = 5778-6) Appearance (test CLEAR CLEAR code = 5767-9) Specific gravity, 1.013 1.001-1.035 urine (test code = 5811-5) pH, urine (test code 5.5 5.0-8.0 = 5803-2) Glucose, urine (test NEGATIVE NEGATIVE code = 36214-3) Bilirubin, UA (test NEGATIVE NEGATIVE code = 5770-3) Ketones, UA (test NEGATIVE NEGATIVE code = 2514-8) Occult blood, urine NEGATIVE NEGATIVE (test code = 5794-3) Protein, UA (test NEGATIVE NEGATIVE code = 17273-4) Nitrite, UA (test NEGATIVE NEGATIVE code = 5802-4) Leukocyte esterase, TRACE NEGATIVE A UA (test code = 5799-2) WBC, UA (test code = 6-10 See_Comment A [Autom ated 5821-4) message] The system which generated this result transmitted reference range : < OR = 5 /HPF. The reference range was not used to interpr et this result as normal/abnormal . RBC, UA (test code = 0-2 See_Comment [Autom ated 61379-0) message] The system which generated this result transmitted reference range : < OR = 2 /HPF. The reference range was not used to interpr et this result as normal/abnormal . Squamous epithelial 0-5 See_Comment [Automa tadeo cells, UA (test code message ] The = 00629-3) system which generated this result transmitted reference range : < OR = 5 /HPF. The reference range was not used to interpr et this result as normal/abnormal . Bacteria, UA (test NONE SEEN NONE SEEN /HPF code = 5769-5) Hyaline casts, UA 6-10 NONE SEEN /LPF A (test code = 5796-8) Granular casts, UA 0-5 NONE SEEN /LPF A (test code = 5793-5) Note: (test code = This urin e was 8251-1) analyzed for th e presence of WBC , RBC, bacteria, casts, and othe r formed elements . Only those elements seen were reported. Urine culture (test SEE NOTE CULTURE , URINE, code = 630-4) ROUTINE Micro Number: [id number] Test Status: Final Specimen Source: Urine Specimen Qualit y: Adequate Result : Less than 10,00 0 CFU/mL of singl e Gram positive organism isolated. No further testing will be performed. If clinically indicated, recollection using a method to minimize contamination, with prompt transfer to Uri ne Culture Transpo rt Tube, is recommended. GLENN (test code = FASTING:NO GLENN) FASTING: NO RAC (test code = Performing RAC) Organization Information: Site ID: [facility] Name: [facility] Address: [address] [place] [phone] Director: Ruy uGpta Lab Interpretation Abnormal (test code = 19936-3) [facility]
--- NOTE | 2022-11-11 15:56 | EDPHYS ---
Physician Documentation [facility] Name: Sudhir Daly Age: 72 yrs Sex: Female : 1950 Arrival Date: 11/11/2022 Time: 14:13 Bed 7 Private MD: ED Physician Nicky Claros HPI: 11/11 15:18 This 72 yrs old Black Female presents to ER via Ambulatory with complaints of Leg Pain. sp3 15:18 72-year-old female with history of hypertension presents to the ED with chief complaint sp3 right lateral lower extremity pain and swelling just distal to the knee. Patient states that this been going on for 2 to 3 days and hurts when she pushes on it. She does not report any repetitive movements or any increased action on her lower extremities. She did denies prior blood clot or DVT/PE history. She also denies prolonged immobilization or travel history. On review of systems, she denies headache, neck pain, chest pain, shortness of breath, abdominal pain, nausea, vomiting, diarrhea, syncope, near syncope, back pain, or any other signs or symptoms on ROS at this time. She does not smoke and does not take hormone replacement or oral contraception for hormone control.. Historical: - Allergies: 14:20 Codeine; ap3 - PMHx: 14:20 Hypertensive disorder; ap3 - Immunization history:: Client reports receiving the 2nd dose of the Covid vaccine. - Social history:: Smoking status: Patient denies any tobacco usage or history of. ROS: 15:19 Constitutional: Negative for fever, chills, and weight loss, Eyes: Negative for injury, sp3 pain, redness, and discharge, ENT: Negative for injury, pain, and discharge, Neck: Negative for injury, pain, and swelling, Cardiovascular: Negative for chest pain, palpitations, and edema, Respiratory: Negative for shortness of breath, cough, wheezing, and pleuritic chest pain, Abdomen/GI: Negative for abdominal pain, nausea, vomiting, diarrhea, and constipation, Back: Negative for injury and pain, Skin: Negative for injury, rash, and discoloration, Neuro: Negative for headache, weakness, numbness, tingling, and seizure, Psych: Negative for depression, anxiety, suicide ideation, homicidal ideation, and hallucinations, Allergy/Immunology: Negative for hives, rash, and allergies, Endocrine: Negative for neck swelling, polydipsia, polyuria, polyphagia, and marked weight changes, Hematologic/Lymphatic: Negative for swollen nodes, abnormal bleeding, and unusual bruising. 15:19 All other systems are negative. Exam: 15:19 Constitutional: This is a well developed, well nourished patient who is awake, alert, sp3 and in no acute distress. Head/Face: Normocephalic, atraumatic. Eyes: Pupils equal round and reactive to light, extra-ocular motions intact. Lids and lashes normal. Conjunctiva and sclera are non-icteric and not injected. Cornea within normal limits. Periorbital areas with no swelling, redness, or edema. Neck: Trachea midline, no thyromegaly or masses palpated, and no cervical lymphadenopathy. Supple, full range of motion without nuchal rigidity, or vertebral point tenderness. No Meningismus. Chest/axilla: Normal chest wall appearance and motion. Nontender with no deformity. No lesions are appreciated. Cardiovascular: Regular rate and rhythm with a normal S1 and S2. No gallops, murmurs, or rubs. Normal PMI, no JVD. No pulse deficits. Respiratory: Lungs have equal breath sounds bilaterally, clear to auscultation and percussion. No rales, rhonchi or wheezes noted. No increased work of breathing, no retractions or nasal flaring. Abdomen/GI: Soft, non-tender, with normal bowel sounds. No distension or tympany. No guarding or rebound. No evidence of tenderness throughout. Back: No spinal tenderness. No costovertebral tenderness. Full range of motion. Skin: Warm, dry with normal turgor. Normal color with no rashes, no lesions, and no evidence of cellulitis. Neuro: Awake and alert, GCS 15, oriented to person, place, time, and situation. Cranial nerves II-XII grossly intact. Motor strength 5/5 in all extremities. Sensory grossly intact. Cerebellar exam normal. Normal gait. Psych: Awake, alert, with orientation to person, place and time. Behavior, mood, and affect are within normal limits. 15:19 Musculoskeletal/extremity: Patient has mild swelling approximately 4 cm x 4 cm on the lower right extremity just anterior lateral to the knee consistent with likely bursitis. There is no calf pain or distal swelling. Swelling is located only in the bursal area. Proximal hip exam, knee exam and foot exam are normal. Distal neurovascular exam is also normal. No overt signs of trauma noted.. Vital Signs: 14:21 BP 144 / 90; Pulse 84; Resp 18; Temp 98.4; Pulse Ox 100% ; Weight 81.65 kg; Height 5 ap3 ft. 3 in. ; 14:21 Body Mass Index 31.89 (81.65 kg, 160.02 cm) ap3 MDM: 14:18 Patient medically screened. kb 15:20 Data reviewed: vital signs, nurses notes, radiologic studies. ED course: 72-year-old sp3 female with pain and inflammation to the right lower extremity likely from bursitis. I met highly suspicious for DVT or PE however we will obtain ultrasound of the right lower extremity. No other signs of trauma noted and x-rays not indicated at this time. Patient is mainly concerned about DVT since her had 1 however she has no other risk factors for having 1 and clinically she looks stable. Disposition will be based on ultrasound result and patient course.. 15:55 ED course: Ultrasound demonstrates no significant abnormality and clear fluid-filled sp3 sac in the area of the swelling/pain. This is consistent with clinical diagnosis of bursitis inflammatory in nature and we will discharge her home on diclofenac with follow-up with her PCP. I am not suspecting infection at this time.. 11/11 14:23 Order name: US Extremity Venous Unilateral Ltd; Complete Time: 16:12 sp3 Administered Medications: No medications were administered Disposition Summary: 11/11/22 15:56 Discharge Ordered Location: Home sp3 Condition: Stable sp3 Diagnosis - Other bursitis of knee, right knee sp3 Followup: sp3 - With: Private Physician - When: Upon discharge from the Emergency Department - Reason: Continuance of care Discharge Instructions: - Discharge Summary Sheet sp3 - Bursitis sp3 Forms: - Medication Reconciliation Form sp3 - Thank You Letter sp3 - Antibiotic Education sp3 - Prescription Opioid Use sp3 - Patient Portal Instructions sp3 - Leadership Thank You Letter sp3 Prescriptions: - Diclofenac Sodium 75 mg Oral Tablet Sustained Release - take 1 tablet by ORAL route 2 times per day; 30 tablet; Refills: 0, Product sp3 Selection Permitted Signatures: Dispatcher [employer] EDJessi Clarke FNP-C FNP-Ckb Prokisch, Amanda, RN RN ap3 Nicky Claros, MD sp3
--- NOTE | 2022-11-11 15:56 | ER ---
Nurse's Notes [facility] Name: Sudhir Daly Age: 72 yrs Sex: Female : 1950 Arrival Date: 11/11/2022 Time: 14:13 Bed 7 Private MD: Diagnosis: Other bursitis of knee, right knee Presentation: 11/11 14:20 Chief complaint: Patient states: she has a knot on her left lower extremity that she ap3 would like to be evaluated to rule out a blood clot. Coronavirus screen: At this time, the client does not indicate any symptoms associated with coronavirus-19. Ebola Screen: No symptoms or risks identified at this time. Initial Sepsis Screen: Does the patient meet any 2 criteria? No. Patient's initial sepsis screen is negative. Does the patient have a suspected source of infection? No. Patient's initial sepsis screen is negative. Risk Assessment: Do you want to hurt yourself or someone else? Patient reports no desire to harm self or others. Onset of symptoms was November 08, 2022. 14:20 Method Of Arrival: Ambulatory ap3 14:20 Acuity: OSEI 3 ap3 Triage Assessment: 14:21 General: Appears in no apparent distress. Behavior is calm, cooperative, appropriate ap3 for age. Pain: Complains of pain in left ham Pain began 2-3 days ago. Neuro: Level of Consciousness is awake, alert, obeys commands, Oriented to person, place, time, situation. Cardiovascular: Patient's skin is warm and dry. Respiratory: Airway is patent Respiratory effort is even, unlabored, Respiratory pattern is regular, symmetrical. Historical: - Allergies: 14:20 Codeine; ap3 - PMHx: 14:20 Hypertensive disorder; ap3 - Immunization history:: Client reports receiving the 2nd dose of the Covid vaccine. - Social history:: Smoking status: Patient denies any tobacco usage or history of. Screenin:22 [facility] ED Fall Risk Assessment (Adult) History of falling in the last 3 months, ap3 including since admission No falls in past 3 months (0 pts). Abuse screen: Denies threats or abuse. Nutritional screening: No deficits noted. Tuberculosis screening: No symptoms or risk factors identified. Vital Signs: 14:21 BP 144 / 90; Pulse 84; Resp 18; Temp 98.4; Pulse Ox 100% ; Weight 81.65 kg; Height 5 ap3 ft. 3 in. ; 14:21 Body Mass Index 31.89 (81.65 kg, 160.02 cm) ap3 ED Course: 14:16 Patient arrived in ED. mr 14:18 Jessi Muse FNP-C [facility]. kb 14:18 Nicky Claros MD is Attending Physician. kb 14:20 Triage completed. ap3 14:22 Arm band placed on right wrist. ap3 15:29 US Extremity Venous Unilateral Ltd In Process Unspecified. EDMS 16:29 Patient has correct armband on for positive identification. Provided Education on: ED cm10 process and procedures. . 16:30 No provider procedures requiring assistance completed. Patient did not have IV access cm10 during this emergency room visit. Administered Medications: No medications were administered Medication: 16:29 VIS not applicable for this client. cm10 Outcome: 15:56 Discharge ordered by . sp3 16:30 Discharged to home ambulatory. cm10 16:30 Condition: good 16:30 Discharge instructions given to patient, Instructed on discharge instructions, follow up and referral plans. no driving heavy equipment, Demonstrated understanding of instructions, follow-up care, medications, Prescriptions given X 1. 16:31 Patient left the ED. cm10 Signatures: Dispatcher [employer] EDCT Jessi Muse FNP-C FNP-Mio Kira DashMavis, RN RN ap3 Nicky Claros MD MD sp3 Stella Knowles RN RN cm10
--- NOTE | 2022-11-11 15:58 | RAD REPORT ---
EXAM DESCRIPTION: US - Extremity Venous Uni Ltd - 11/11/2022 3:27 pm CLINICAL HISTORY: Swelling COMPARISON: None. TECHNIQUE: Real-time sonographic evaluation of the left lower extremity deep venous system was perfo rmed. FINDINGS: Normal compressibility, flow augmentation, phasic flow and spontaneous flow is identified in the left lower extremity deep venous system. No intraluminal filling defects seen Posterior knee subcutaneous swelling and launch related fluid, covering an area measuring approximate ly 3 cm. This may relate to a ruptured Agustin cyst. IMPRESSION: No evidence of DVT in the left lower extremity. 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
[2022-11-11 16:36] VITALS: BP 144/90; TEMP 98.4; O2SAT 100
== END 2022-11-11 16:31 | disposition home or self-care (01) ==
LOC: ER 14:13
DX: M71.561 Other bursitis, not elsewhere classified, right knee (principal); I10 Essential (primary) hypertension
CPT/HCPCS: 93971; 99283